=== PATIENT | female | born 1990 | race Caucasian/White ===

== ENCOUNTER 2023-06-04 18:43 | Emergency (ER) | payer OTHER ==
[~2023-06-04] VITALS: Ht 162.6 cm; Wt 115.6 kg
[2023-06-04 18:43] VITALS: TEMP 98.9
[2023-06-04] MEDS ORDERED: NS 1,000 ML IV ONE (19:25)
[2023-06-04 19:37] LABS: VENOUS BASE EXCESS -3.3 (-2.0-2.0); VENOUS HCO3 20.8 MMOL/L (23.0-27.0); VENOUS PARTIAL PRESSURE CO2 34.6 mmHg (38.0-50.0); VENOUS PH 7.396 UNITS (7.330-7.430); VENOUS STANDARD HCO3 21.8 MMOL/L; VENOUS TOTAL CO2 21.8 MMOL/L (24.0-28.0)
[2023-06-04 19:37] LABS: BASO % 0.2 % (0.0-1.0); EOS # 0.1 10^3/uL (0.0-0.5); EOS % 1.2 % (0.0-3.0); HEMATOCRIT 41.8 % (36.0-47.0); HEMOGLOBIN 14.2 g/dl (12.0-15.5); LYMPH # 1.7 10^3/uL (1.5-5.0); LYMPH % 18.8 % (24.0-44.0); MEAN CORPUSCULAR VOLUME 82.4 fl (80.0-96.0); MONO # 0.5 10^3/uL (0.0-0.8); MONO % 5.6 % (2.0-8.0); NEUTROPHILS # 6.6 10^3/uL (1.5-8.5); NEUTROPHILS % 73.6 % (36.0-66.0); PLATELET COUNT, AUTOMATED 282 10^3/uL (150-450); RED BLOOD COUNT 5.07 10^6/uL (4.00-5.40)
[2023-06-04 21:10] LABS: ETHYL ALCOHOL (ETHANOL) < 0.003 % (0.000-0.010)
[2023-06-04 21:12] LABS: ACETAMINOPHEN LEVEL < 2.0 UG/ML (10.0-20.0); ALBUMIN 3.3 G/DL (3.2-5.2); ALKALINE PHOSPHATASE 67 U/L (46-116); ALT/SGPT 40 U/L (7.0-40); AST/SGOT 26 U/L (<34); BILIRUBIN,DIRECT < 0.1 MG/DL (<0.4); BILIRUBIN,TOTAL 0.2 MG/DL (0.3-1.2); BLOOD UREA NITROGEN 13 MG/DL (9-23); CALCIUM LEVEL 8.8 MG/DL (8.5-10.1); CARBON DIOXIDE LEVEL 23 MMOL/L (20-31); CHLORIDE LEVEL 109 MMOL/L (98-107); GLOMERULAR FILTRATION RATE > 60.0 (>60); GLUCOSE, FASTING 111 MG/DL (60-100); POTASSIUM SERUM 4.8 MMOL/L (3.5-5.1); SALICYLATE LEVEL < 3.0 MG/DL (<30); SODIUM LEVEL 140 MMOL/L (136-145); TOTAL PROTEIN 6.1 G/DL (5.7-8.2)
[2023-06-04 21:14] LABS: THYROID STIMULATING HORMONE 0.569 uIU/ML (0.55-4.78)
[2023-06-04 22:21] LABS: AMPHETAMINES LEVEL URINE NEGATIVE (NEGATIVE); BENZODIAZEPINES URINE NEGATIVE (NEGATIVE)
[2023-06-04 22:22] LABS: BARBITURATES URINE NEGATIVE (NEGATIVE); COCAINE METABOLITE URINE NEGATIVE (NEGATIVE); METHADONE URINE NEGATIVE (NEGATIVE); OPIATES URINE NEGATIVE (NEGATIVE); PHENCYCLIDINE URINE NEGATIVE (NEGATIVE)
[2023-06-04 22:38] LABS: CANNABINOIDS URINE POSITIVE (NEGATIVE)
[2023-06-04 23:25] VITALS: BP 90/53; O2SAT 97
== END 2023-06-04 23:24 | disposition home or self-care (01) ==
LOC: M ED 18:43
DX: G40.909 Epilepsy, unspecified, not intractable, without status epilepticus (principal); R00.0 Tachycardia, unspecified

== ENCOUNTER 2023-09-17 08:36 | Emergency (ER) | payer OTHER ==
[~2023-09-17] VITALS: Ht 162.6 cm; Wt 114.0 kg
[2023-09-17 08:54] VITALS: TEMP 98.1
[2023-09-17] MEDS ORDERED: LAMO25TA4 (08:54)
[2023-09-17] MEDS ORDERED: SERT50TA29 (08:54)
[2023-09-17 09:47] LABS: BLOOD UREA NITROGEN 14 MG/DL (9-23); CALCIUM LEVEL 9.1 MG/DL (8.5-10.1); CARBON DIOXIDE LEVEL 26 MMOL/L (20-31); CHLORIDE LEVEL 108 MMOL/L (98-107); CREATININE FOR GFR 0.76 MG/DL (0.55-1.30); GLOMERULAR FILTRATION RATE > 60.0 (>60); GLUCOSE, FASTING 91 MG/DL (60-100); POTASSIUM SERUM 4.5 MMOL/L (3.5-5.1); SODIUM LEVEL 141 MMOL/L (136-145)
[2023-09-17 10:02] LABS: HCG, SERUM QUALITATIVE NEGATIVE (NEGATIVE)
[2023-09-17 10:21] VITALS: O2SAT 98
[2023-09-17 10:29] LABS: AMPHETAMINES LEVEL URINE NEGATIVE (NEGATIVE); BARBITURATES URINE NEGATIVE (NEGATIVE); BENZODIAZEPINES URINE NEGATIVE (NEGATIVE); COCAINE METABOLITE URINE NEGATIVE (NEGATIVE); METHADONE URINE NEGATIVE (NEGATIVE); PHENCYCLIDINE URINE NEGATIVE (NEGATIVE)
[2023-09-17 10:30] VITALS: BP 114/55
[2023-09-17 10:30] LABS: OPIATES URINE NEGATIVE (NEGATIVE)
[2023-09-17 10:37] LABS: CANNABINOIDS URINE POSITIVE (NEGATIVE)
== END 2023-09-17 10:51 | disposition home or self-care (01) ==
LOC: EDBD 08:36 → M ED 08:36
DX: G40.909 Epilepsy, unspecified, not intractable, without status epilepticus (principal); J45.909 Unspecified asthma, uncomplicated; Z79.899 Other long term (current) drug therapy

== ENCOUNTER 2024-04-07 13:11 | Observation (INO) | payer OTHER ==
[~2024-04-07] VITALS: Ht 162.6 cm; Wt 112.1 kg
[~2024-04-07 13:11] MED LIST: LAMO25TA4; SERT50TA29 PO
[2024-04-07 14:12] LABS: BASO % 0.3 % (0.0-1.0); EOS % 0.3 % (0.0-3.0); HEMATOCRIT 41.4 % (36.0-47.0); HEMOGLOBIN 14.5 g/dl (12.0-15.5); LYMPH # 1.7 10^3/uL (1.5-5.0); LYMPH % 21.1 % (24.0-44.0); MEAN CORPUSCULAR HEMOGLOBIN 28.5 pg (27.0-33.0); MEAN CORPUSCULAR VOLUME 81.5 fl (80.0-96.0); MONO # 0.5 10^3/uL (0.0-0.8); MONO % 6.2 % (2.0-8.0); NEUTROPHILS # 5.7 10^3/uL (1.5-8.5); NEUTROPHILS % 71.6 % (36.0-66.0); PLATELET COUNT, AUTOMATED 273 10^3/uL (150-450); RED BLOOD COUNT 5.08 10^6/uL (4.00-5.40); WHITE BLOOD COUNT 7.9 10^3/uL (4.0-10.0)
[2024-04-07 14:30] LABS: ETHYL ALCOHOL (ETHANOL) < 0.003 % (0.000-0.010)
[2024-04-07 14:32] LABS: SALICYLATE LEVEL < 3.0 MG/DL (<30)
[2024-04-07 14:33] LABS: ALKALINE PHOSPHATASE 88 U/L (46-116); ALT/SGPT 71 U/L (7.0-40); AST/SGOT 44 U/L (<34); BILIRUBIN,DIRECT 0.2 MG/DL (<0.4); BILIRUBIN,TOTAL 0.6 MG/DL (0.3-1.2); BLOOD UREA NITROGEN 8 MG/DL (9-23); CALCIUM LEVEL 9.3 MG/DL (8.5-10.1); CARBON DIOXIDE LEVEL 22 MMOL/L (20-31); CHLORIDE LEVEL 108 MMOL/L (98-107); CREATININE FOR GFR 0.69 MG/DL (0.55-1.30); GLOMERULAR FILTRATION RATE > 60.0 (>60); GLUCOSE, FASTING 100 MG/DL (60-100); POTASSIUM SERUM 3.9 MMOL/L (3.5-5.1); SODIUM LEVEL 139 MMOL/L (136-145); TOTAL PROTEIN 6.7 G/DL (5.7-8.2)
[2024-04-07 14:39] LABS: THYROID STIMULATING HORMONE 0.938 uIU/ML (0.55-4.78); VITAMIN B12 LEVEL 477 PG/ML (211-911)
[2024-04-07 14:46] LABS: HCG, SERUM QUALITATIVE NEGATIVE (NEGATIVE)
[2024-04-07] MEDS ORDERED: ISOVUE-370 76% 100ML VIAL As Ordered ONE (14:55)
[2024-04-07 15:20] LABS: AMPHETAMINES LEVEL URINE NEGATIVE (NEGATIVE); BARBITURATES URINE NEGATIVE (NEGATIVE); BENZODIAZEPINES URINE NEGATIVE (NEGATIVE); CANNABINOIDS URINE POSITIVE (NEGATIVE); COCAINE METABOLITE URINE NEGATIVE (NEGATIVE); METHADONE URINE NEGATIVE (NEGATIVE); OPIATES URINE NEGATIVE (NEGATIVE); PHENCYCLIDINE URINE NEGATIVE (NEGATIVE)
[2024-04-07 16:07] LABS: ABG HCO3 19.5 MMOL/L (22.0-26.0); ABG O2 SATURATION 98.2 % (95.0-99.0); ABG PARTIAL PRESSURE CO2 28.4 mmHg (35.0-45.0); ABG PARTIAL PRESSURE O2 105.6 mmHg (75.0-100.0); ABG TOTAL CO2 20.4 MMOL/L (22.0-29.0); ABG pH (ARTERIAL) 7.455 UNITS (7.350-7.450)
[2024-04-07] MEDS: LR 1,000 ML IV ONE (17:30)
[2024-04-07 18:13] LABS: HEMOGLOBIN A1c 4.7 % (4.0-6.0)
[2024-04-07 18:30] VITALS: BP 137/88; TEMP 98.6
[2024-04-07] MEDS ORDERED: LAMO150T3 PO (18:30)
[2024-04-07] MEDS ORDERED: HYDR-3363 PO (18:30)
[2024-04-07] MEDS ORDERED: FLUT1BLS INH (18:30)
[2024-04-07] MEDS ORDERED: NAPR-849 PO (18:30)
[2024-04-07] MEDS ORDERED: HOME MED LIST COMPLETE! XX SCH (18:35)
[2024-04-07 20:00] VITALS: BP 138/87; TEMP 98.1; O2SAT 98
[2024-04-07] MEDS: lamoTRIgine 100MG TAB PO SCH (21:00)
[2024-04-07] MEDS: ADVAIR HFA 115/21MCG INHALER INH SCH (21:27)
[2024-04-08 04:38] VITALS: BP 134/88; TEMP 98.6; O2SAT 97
[2024-04-08 06:57] LABS: HEMATOCRIT 43.8 % (36.0-47.0); HEMOGLOBIN 14.9 g/dl (12.0-15.5); MEAN CORPUSCULAR HEMOGLOBIN 28.1 pg (27.0-33.0); MEAN CORPUSCULAR VOLUME 82.5 fl (80.0-96.0); PLATELET COUNT, AUTOMATED 305 10^3/uL (150-450); RED BLOOD COUNT 5.31 10^6/uL (4.00-5.40); WHITE BLOOD COUNT 10.2 10^3/uL (4.0-10.0)
[2024-04-08 07:19] LABS: BLOOD UREA NITROGEN 8 MG/DL (9-23); CALCIUM LEVEL 9.6 MG/DL (8.5-10.1); CARBON DIOXIDE LEVEL 25 MMOL/L (20-31); CHLORIDE LEVEL 107 MMOL/L (98-107); CHOLESTEROL LEVEL 141 MG/DL (<200); CHOLESTEROL RISK RATIO 2.63 (<5); CREATININE FOR GFR 0.73 MG/DL (0.55-1.30); GLOMERULAR FILTRATION RATE > 60.0 (>60); GLUCOSE, FASTING 107 MG/DL (60-100); HDL CHOLESTEROL 53.6 MG/DL (>40); LDL CHOLESTEROL 76.8 MG/DL (<100); NON-HDL-C 87.4 MG/DL; POTASSIUM SERUM 4.1 MMOL/L (3.5-5.1); SODIUM LEVEL 139 MMOL/L (136-145); TRIGLYCERIDES LEVEL 53 MG/DL (<150)
[2024-04-08] MEDS: SERTRALINE HCL 50 MG TAB PO SCH (08:07)
[2024-04-08] MEDS: ENOXAPARIN 40MG/0.4ML SYRINGE (J1650 PER 10MG) SC SCH (08:07)
[2024-04-08 10:20] LABS: ALBUMIN 4.1 G/DL (3.2-5.2); ALKALINE PHOSPHATASE 92 U/L (46-116); ALT/SGPT 74 U/L (7.0-40); AST/SGOT 33 U/L (<34); BILIRUBIN,DIRECT 0.2 MG/DL (<0.4); BILIRUBIN,TOTAL 0.4 MG/DL (0.3-1.2)
[2024-04-08 10:28] LABS: PROCALCITONIN <0.04 ng/ml
[2024-04-08 12:00] VITALS: BP 148/94; TEMP 99.1; O2SAT 98
[2024-04-08] MEDS: OLANZapine 5 MG TAB PO PRN (14:47)
[2024-04-08] MEDS: METOPROLOL TART 12.5 MG PER 1/2 TAB PO SCH (14:54)
[2024-04-08 21:00] VITALS: BP 113/82; TEMP 97.9; O2SAT 98
[2024-04-08] MEDS: ACETAMINOPHEN TAB 650MG DOSE (2X325MG) PO PRN (23:07)
[2024-04-09 01:00] VITALS: BP 110/70; TEMP 97.2; O2SAT 97
[2024-04-09 05:00] VITALS: BP 102/62; TEMP 98.2; O2SAT 95
[2024-04-09 07:28] VITALS: BP 147/95
[2024-04-09] MEDS ORDERED: METO1TAB87 PO (09:29)
== END 2024-04-09 12:14 ==
LOC: M ED 13:11 → M ED INP 17:17 → M MSPAV 18:26
PROVIDERS: ADMIT Internal Medicine; ATTEND Internal Medicine
DX: G45.4 Transient global amnesia (principal); R41.0 Disorientation, unspecified; G93.41 Metabolic encephalopathy; R45.851 Suicidal ideations; F43.10 Post-traumatic stress disorder, unspecified; F41.9 Anxiety disorder, unspecified; F32.A Depression, unspecified; R00.0 Tachycardia, unspecified; R74.01 Elevation of levels of liver transaminase levels; G40.909 Epilepsy, unspecified, not intractable, without status epilepticus; J45.20 Mild intermittent asthma, uncomplicated; F12.10 Cannabis abuse, uncomplicated; Z79.899 Other long term (current) drug therapy
CPT/HCPCS: 36415; 36600; 70450; 70496; 70498; 70551; 71045; 76705; 80047; 80048; 80061; 80076; 80143; 80307; 81001; 82077; 82607; 82803; 83036; 83605; 84145; 84425; 84443; 84703; 85025; 85027; 87040; 93005; 93041; 94640; 94760; 96372; 96374; 97161; 97530; 99285; J1650; Q9967

== ENCOUNTER 2024-04-09 09:33 | Inpatient (IN) | payer OTHER ==
[~2024-04-09 09:33] MED LIST changes: +FLUT1BLS INH; +HYDR-3363 PO; +LAMO150T3 PO; +METO1TAB87 PO; +NAPR-849 PO
[2024-04-09] MEDS ORDERED: MAALOX 30 ML SUSP *UDC PO PRN (09:45)
[2024-04-09] MEDS ORDERED: MOM 30ML SUSPENSION UDC PO PRN (09:45)
[2024-04-09] MEDS ORDERED: IBUPROFEN 400MG TAB PO PRN (09:45)
[2024-04-09 14:42] VITALS: BP 138/87; TEMP 98.7; O2SAT 96
[2024-04-09 20:00] VITALS: BP 146/87
[2024-04-09] MEDS: ACETAMINOPHEN TAB 650MG DOSE (2X325MG) PO PRN (20:02)
[2024-04-09] MEDS: METOPROLOL TART 12.5 MG PER 1/2 TAB PO SCH (20:02)
[2024-04-09] MEDS: OLANZapine 5 MG TAB PO SCH (20:02)
[2024-04-09] MEDS: lamoTRIgine 100MG TAB PO SCH (20:02)
[2024-04-10 06:21] VITALS: BP 121/59; TEMP 97.4; O2SAT 97
[2024-04-10] MEDS: ENOXAPARIN 40MG/0.4ML SYRINGE (J1650 PER 10MG) SC SCH (08:11)
[2024-04-10] MEDS: SERTRALINE HCL 50 MG TAB PO SCH (11:04)
[2024-04-10 17:40] VITALS: BP 136/79; TEMP 97.9; O2SAT 98
[2024-04-10] MEDS: IBUPROFEN 600MG TAB PO PRN (21:55)
[2024-04-11 06:00] VITALS: BP 141/63; TEMP 98.7; O2SAT 97
[2024-04-11 06:45] LABS: CHOLESTEROL RISK RATIO 3.08 (<5); HDL CHOLESTEROL 48.6 MG/DL (>40); LDL CHOLESTEROL 83.2 MG/DL (<100); NON-HDL-C 101.4 MG/DL
[2024-04-11 18:42] VITALS: BP 136/83; TEMP 98.7
[2024-04-11] MEDS: traZODone 50 MG TAB PO PRN (20:05)
[2024-04-12 06:18] LABS: HEMATOCRIT 42.4 % (36.0-47.0); HEMOGLOBIN 14.3 g/dl (12.0-15.5); MEAN CORPUSCULAR HGB CONC 33.7 g/dl (32.0-36.5); MEAN CORPUSCULAR VOLUME 83.1 fl (80.0-96.0); PLATELET COUNT, AUTOMATED 288 10^3/uL (150-450); WHITE BLOOD COUNT 6.7 10^3/uL (4.0-10.0)
[2024-04-12 06:35] VITALS: BP 102/55; TEMP 97.2; O2SAT 98
[2024-04-12 08:26] VITALS: BP 138/88
[2024-04-12 08:29] VITALS: BP 138/88
[2024-04-12] MEDS ORDERED: OLAN1TAB16 PO (09:55)
[2024-04-12] MEDS ORDERED: LAMO150T3 PO (09:55)
[2024-04-12] MEDS ORDERED: SERT50TA29 PO (09:55)
[2024-04-12] MEDS ORDERED: TRAZ-252 PO (09:55)
== END 2024-04-12 11:45 | disposition home or self-care (01) | DRG 882 ==
LOC: M PSY 12:51
PROVIDERS: ADMIT Student in an Organized Health Care Education/Training Program; ATTEND Student in an Organized Health Care Education/Training Program
DX: F43.10 Post-traumatic stress disorder, unspecified (principal); R45.851 Suicidal ideations; F32.A Depression, unspecified; F41.9 Anxiety disorder, unspecified; G40.909 Epilepsy, unspecified, not intractable, without status epilepticus; F31.60 Bipolar disorder, current episode mixed, unspecified; F12.90 Cannabis use, unspecified, uncomplicated; R41.0 Disorientation, unspecified; Z88.0 Allergy status to penicillin; Z79.899 Other long term (current) drug therapy; J45.20 Mild intermittent asthma, uncomplicated